=== PATIENT | female | born 1970 | race Two or more races ===

== ENCOUNTER 2019-11-18 12:56 | Emergency (ER) | payer BC ==
[~2019-11-18] VITALS: Ht 160 cm; Wt 75.2 kg
[2019-11-18] MEDS ORDERED: NAPR220C14 PO (13:03)
[2019-11-18 14:03] LABS: BASO % 0.5 % (0.0-1.0); EOS # 0.2 10^3/uL (0.0-0.5); EOS % 1.9 % (0.0-3.0); HEMATOCRIT 41.6 % (36.0-47.0); HEMOGLOBIN 13.9 g/dl (12.0-15.5); LYMPH # 2.5 10^3/uL (1.5-5.0); LYMPH % 30.3 % (24.0-44.0); MEAN CORPUSCULAR HEMOGLOBIN 33.3 pg (27.0-33.0); MEAN CORPUSCULAR HGB CONC 33.4 g/dl (32.0-36.5); MEAN CORPUSCULAR VOLUME 99.8 fl (80.0-96.0); MONO # 0.9 10^3/uL (0.0-0.8); MONO % 10.6 % (0.0-5.0); NEUTROPHILS # 4.6 10^3/uL (1.5-8.5); NEUTROPHILS % 56.3 % (36.0-66.0); PLATELET COUNT, AUTOMATED 259 10^3/uL (150-450); RED BLOOD COUNT 4.17 10^6/uL (4.00-5.40); WHITE BLOOD COUNT 8.1 10^3/uL (4.0-10.0)
[2019-11-18] MEDS ORDERED: KETOROLAC 30 MG/ML 1ML VIAL IV ONE (15:00)
[2019-11-18 15:32] LABS: ALBUMIN 3.6 GM/DL (3.2-5.2); ALT/SGPT 22 U/L (12-78); BILIRUBIN,DIRECT < 0.1 MG/DL (0.0-0.2); BILIRUBIN,TOTAL 0.3 MG/DL (0.2-1.0); BLOOD UREA NITROGEN 10 MG/DL (7-18); CALCIUM LEVEL 8.8 MG/DL (8.5-10.1); CARBON DIOXIDE LEVEL 28 MEQ/L (21-32); CHLORIDE LEVEL 108 MEQ/L (98-107); GLOMERULAR FILTRATION RATE > 60.0 (>58); GLUCOSE, FASTING 84 MG/DL (70-100); LIPASE 229 U/L (73-393); POTASSIUM SERUM 4.6 MEQ/L (3.5-5.1); SODIUM LEVEL 138 MEQ/L (136-145); TOTAL PROTEIN 7.2 GM/DL (6.4-8.2)
[2019-11-18 15:58] VITALS: BP 140/80
[2019-11-18] MEDS ORDERED: FLAG500T PO (16:17)
--- NOTE | 2019-11-18 16:33 | REP ---
PELVIC ULTRASOUND: Real-time sonographic evaluation of pelvis performed utilizing transabdominal and endovaginal technique. Bladder measures 2.7 x 1.9 x 3.9 cm. Uterus measures 13.0 x 8.2 x 10.0 cm. Endometrium is difficult to visualize. Myometrium is heterogeneous with diffuse fibroid changes somewhat obscuring the endometrium. On the left anteriorly, a uterine fibroid measures 3.4 x 2.6 x 2.6 cm. On the right anteriorly, a fibroid measures 2.4 x 2.0 x 2.6 cm. A fibroid in the midline measures 2 cm in diameter. Estimated endometrial thickness is 8 mm. Ovaries could not be visualized. No gross adnexal mass is seen. No free fluid is seen. IMPRESSION: Enlarged fibroid uterus, as discussed in detail above. Endometrium is not well visualized. Ovaries could not be visualized. No adnexal mass is seen, and there is no evidence of free fluid. Electronically Signed by Nick Hensley MD 11/18/2019 04:41 P
[2019-11-18 16:54] LABS: CHLAMYDIA DNA AMPLIFICATION NEGATIVE (NEGATIVE); GC DNA AMPLIFICATION NEGATIVE (NEGATIVE)
--- NOTE | 2019-11-20 07:14 | ED PDOC ---
Post-Departure Follow-Up tyrese roca faxed formal report of pelvic us for fu Vinod Singer MD November 20, 2019 07:14
== END 2019-11-18 16:33 | disposition home or self-care (01) ==
LOC: M ED 12:56
DX: N93.8 Other specified abnormal uterine and vaginal bleeding (principal); D25.9 Leiomyoma of uterus, unspecified; N76.0 Acute vaginitis; Z88.5 Allergy status to narcotic agent; F17.210 Nicotine dependence, cigarettes, uncomplicated
CPT/HCPCS: 76830; 76856; 80048; 80076; 83690; 84702; 85025; 87210; 87661; 96374; 99284; J1885